=== PATIENT | male | born 1960 | race Caucasian/White ===

== ENCOUNTER 2020-11-03 14:26 | Emergency (ER) | payer OTHER ==
[~2020-11-03] VITALS: Ht 180.3 cm; Wt 135.9 kg
[2020-11-03 14:30] VITALS: BP 158/84
--- NOTE | 2020-11-03 14:46 | NUR ---
PT AMBULATORY TO ROOM 31 W/ C/O L HAND BITE FROM [employer] YESERDAY MORNING AND NOW HAS INCREASED SWELLING/REDNESS/HEAT TO ARM. MULTIPLE BITE JOY NOTED ON HAND. PT RESTING ON GURNEY. THERESA.
--- NOTE | 2020-11-03 14:50 | NUR ---
EDPA LONG AT BEDSIDE FOR EVAL.
[2020-11-03] MEDS ORDERED: DIPH,PERTUSS(ACELL),TET VAC/PF 0.5 ML IM-VACC ONE ×2 (15:00)
--- NOTE | 2020-11-03 15:15 | NUR ---
BREAK RN: EDPA AT BEDSIDE TO UPDATE PT ON POC.
== END 2020-11-03 15:38 | disposition home or self-care (01) ==
LOC: ED 15:32
DX: S60.572A Other superficial bite of hand of left hand, initial encounter (principal); L03.114 Cellulitis of left upper limb; G89.11 Acute pain due to trauma; W55.01XA Bitten by cat, initial encounter; Y93.89 Activity, other specified; Y92.098 Other place in other non-institutional residence as the place of occurrence of the external cause; Y99.8 Other external cause status
CPT/HCPCS: 90471; 90715; 99283